=== PATIENT | male | born 1995 | race American Indian/Alaskan Native ===

== ENCOUNTER 2018-05-14 02:57 | Emergency (ER) | payer OTHER ==
[2018-05-14 03:14] VITALS: BP 150/90; PULSE 80; RESP 14; TEMP 987.4; O2SAT 98
[2018-05-14] MEDS ORDERED: guaiFENesin 100 mg/5 ml Syrup UD PO STA (03:33)
--- NOTE | 2018-05-14 03:34 | C.PDOC ---
History Of Present Illness 23 year old male presents to the ED c/o nasal congestion, dry non productive cough, congestion, malaise and subjective fever for the past week. Patient states he has not taken any medications for his symptoms. Patient rpeorts his male roommate does not have symptoms. Patient denies nausea, vomit, diarrhea, headache, recent travel. Time Seen by Provider: 05/14/18 03:28 Chief Complaint (Nursing): Cough, Cold, Congestion History Per: Patient History/Exam Limitations: no limitations Onset/Duration Of Symptoms: Days Current Symptoms Are (Timing): Still Present Location Of Pain: Throat, Sinus/es, Diffuse Myalgias Sick Contacts (Context): None Associated Symptoms: Fever, Cough, Sinus Drainage, Myalgias, Nasal Congestion Ear Symptoms: Bilateral: None Recent travel outside of the [place]: No Additional History Per: Patient Past Medical History Reviewed: Historical Data, Nursing Documentation, Vital Signs Vital Signs: Last Vital Signs Temp 987.4 F H 05/14/18 03:09 Pulse 80 05/14/18 03:09 Resp 14 05/14/18 03:09 BP 150/90 05/14/18 03:09 Pulse Ox 98 05/14/18 03:09 - Medical History PMH: Asthma Surgical History: No Surg Hx Family History: States: Unknown Family Hx - Social History Hx Alcohol Use: Yes Hx Substance Use: Yes - Immunization History Hx Tetanus Toxoid Vaccination: No Hx Influenza Vaccination: No Hx Pneumococcal Vaccination: No Review Of Systems Constitutional: Positive for: Fever, Malaise. Negative for: Chills ENT: Positive for: Nose Discharge, Nose Congestion. Negative for: Throat Pain Cardiovascular: Negative for: Chest Pain Respiratory: Positive for: Cough. Negative for: Shortness of Breath Gastrointestinal: Negative for: Nausea, Vomiting, Abdominal Pain Skin: Negative for: Rash Neurological: Negative for: Weakness, Numbness, Headache, Dizziness Physical Exam - Physical Exam Appears: Non-toxic, No Acute Distress Skin: Normal Color, Warm, Dry Head: Atraumatic, Normacephalic Eye(s): bilateral: Normal Inspection Ear(s): Bilateral: Normal Nose: Other (nasal passage erythema) Oral Mucosa: Moist Throat: Normal, No Erythema, No Exudate Neck: Normal ROM, Supple Chest: Symmetrical Cardiovascular: Rhythm Regular Respiratory: No Rales, No Rhonchi, No Wheezing, Other (mild coarse breath sounds) Gastrointestinal/Abdominal: Soft, No Tenderness Extremity: Normal ROM, No Tenderness, No Swelling Neurological/Psych: Oriented x3, Normal Speech, Normal Cognition Gait: Steady ED Course And Treatment O2 Sat by Pulse Oximetry: 98 (ON RA) Pulse Ox Interpretation: Normal Medical Decision Making Medical Decision Making: Plan: * Motrin 600 mg PO * Robitussin 100 mg PO viral syndrome for 1 week sig for nasal passage erythema, no d/c educated to curb smoking and OTC cold meds day/night Disposition Doctor Will See Patient In The: Office Counseled Patient/Family Regarding: Studies Performed, Diagnosis - Disposition Referrals: [facility] [Outside] [facility] [place] [Outside] [facility] [Outside] Disposition: HOME/ ROUTINE Disposition Time: 03:34 Condition: GOOD Additional Instructions: Dayquil/Nyquil (or non-brand equivalent) usually 3-4x/day and 1-2x/night no work/school until afebrile for 2 days MOtrin and Robitussin given in ED Instructions: Viral Syndrome (DC) Forms: [facility] ([facility]ans[facility]) - Clinical Impression Clinical Impression: Influenza-like illness - Scribe Statement The provider has reviewed the documentation as recorded by the Scribe Sandeep Felder All medical record entries made by the Scribe were at my direction and personally dictated by me. I have reviewed the chart and agree that the record accurately reflects my personal performance of the history, physical exam, medical decision making, and the department course for this patient. I have also personally directed, reviewed, and agree with the discharge instructions and disposition.
[2018-05-14] MEDS ORDERED: guaiFENesin 100 mg/5 ml Syrup UD ONE (03:43)
== END 2018-05-14 03:54 | disposition home or self-care (01) ==
LOC: C.ER 02:57
DX: J11.1 Influenza due to unidentified influenza virus with other respiratory manifestations (principal)